=== PATIENT | female | born 1965 | race Caucasian/White ===

== ENCOUNTER 2022-05-05 08:17 | Outpatient (CLI) | payer BC | END 2022-05-05 08:18 | disposition home or self-care (01) | LOC: CSHWCC 08:17 | PROVIDERS: ATTEND Nurse Practitioner Family | DX: L97.918 Non-pressure chronic ulcer of unspecified part of right lower leg with other specified severity (principal); L97.419 Non-pressure chronic ulcer of right heel and midfoot with unspecified severity; R60.0 Localized edema | CPT/HCPCS: 99204; G0463 ==

== ENCOUNTER 2022-09-24 14:41 | Outpatient (CLI) | payer BC | END 2022-09-24 14:42 | disposition home or self-care (01) | LOC: CSHMAMMO 14:41 | PROVIDERS: ATTEND Obstetrics & Gynecology | DX: Z12.31 Encounter for screening mammogram for malignant neoplasm of breast (principal); Z80.3 Family history of malignant neoplasm of breast | CPT/HCPCS: 77063; 77067 ==

== ENCOUNTER 2023-09-25 10:27 | Outpatient (CLI) | payer BC | END 2023-09-25 10:28 | disposition home or self-care (01) | LOC: CSHMAMMO 10:27 | PROVIDERS: ATTEND Obstetrics & Gynecology | DX: Z12.31 Encounter for screening mammogram for malignant neoplasm of breast (principal); Z80.3 Family history of malignant neoplasm of breast | CPT/HCPCS: 77063; 77067 ==

== ENCOUNTER 2024-01-04 13:07 | Outpatient (CLI) | payer BC | END 2024-01-04 13:08 | disposition home or self-care (01) | LOC: CSHULT 13:07 | PROVIDERS: ATTEND Otolaryngology Plastic Surgery within the Head & Neck | DX: E04.1 Nontoxic single thyroid nodule (principal) | CPT/HCPCS: 76536 ==